=== PATIENT | male | born 1975 | race African-American/Black ===

== ENCOUNTER → 2022-11-11 10:23 | Outpatient (BNVA) | payer OTHER, SELFPAY | PROVIDERS: PCP Student in an Organized Health Care Education/Training Program; Visit Provider Internal Medicine | DX: S29.012A Strain of muscle and tendon of back wall of thorax, initial encounter (principal); S46.819A Strain of other muscles, fascia and tendons at shoulder and upper arm level, unspecified arm, initial encounter; X50.0XXA Overexertion from strenuous movement or load, initial encounter | CPT/HCPCS: 99202 ==

== ENCOUNTER 2024-11-27 11:20 | Emergency (ER) | payer MEDICAID, SELFPAY ==
--- NOTE | 2024-11-27 11:43 | ED_ITS ---
HPI - Dental/Oral General Chief complaint: Dental/Oral Stated complaint: dental pain, tooth infection Time Seen by Provider: 11/27/24 11:47 Source: patient, RN notes reviewed and old records reviewed History of Present Illness ED Provider: Helen Isidro PA-C HPI Narrative: 49 year old male with no sig PMHx presenting to the ED c/o R upper dental infection with pain radiating down to neck x 1 week. Reports subjective fever x1 and admits to similar sx in the past. Denies drainage, recent dental procedure/trauma, hearing loss, chills, sore throat. denies having Dentist Related Data Previous Rx's ?Medication ?Instructions ?Recorded amoxicillin 875 mg-potassium 1 tab PO BID 7 days #14 tabs 11/27/24 clavulanate 125 mg tablet Allergies Allergy/AdvReac Type Severity Reaction Status Date / Time No Known Allergies Allergy Verified 11/27/24 11:46 Review of Systems Review of Systems: Yes all other systems are reviewed and are negative Constitutional: Constitutional: Reports as per HPI [facility] Past Medical History Attestation statement: The following information was validated with the patient. Source: old records reviewed Social History Social History Advance Directives: No Advance Directives Information Provided: Yes Do you have a plan to hurt others: No Plan Physical Exam Vital Signs: Vital Signs: Last Vital Signs Temp 98.0 F 11/27/24 11:44 Pulse 70 11/27/24 11:44 Resp 18 11/27/24 11:44 BP 146/93 H 11/27/24 11:44 Pulse Ox 98 11/27/24 11:44 O2 Del Method Room Air 11/27/24 11:44 BMI result Body Mass Index 34.6 Const: General: cooperative, healthy appearing and no acute distress Orientation/consciousness: patient oriented x3 Limitations: no limitations HEENT: Other: +poor dentition with multiple caries. ri ght upper posterior molar with gingival swelling and erythema. No focal fluctuance or induration. Tender to palpation. No drainage. Head: Yes normal to inspection and Yes atraumatic Ears: hearing grossly normal bilaterally, external ears normal, TM's normal bilaterally and mastoids normal General nose exam: Normal external nose present Face and sinus: Yes normal facial exam Mouth: no drooling and no muffled voice Throat: Yes tonsils normal, Yes uvula midline, No peritonsillar mass, No uvula laterally displaced and No uvular edema Eyes: General: appearance normal, both eyes and all related structures EOM: EOMs intact bilaterally Neck: Neck: Yes normal visual inspection and Yes no meningeal signs Resp: Effort & Inspection: normal respiratory effort, no respiratory distress and no stridor Cardio: Rate: regular rate Skin: Rashes: no rashes Wounds: no wounds Neuro: General: patient oriented x3, tone normal and no meningeal signs Cranial nerves: Yes CN's II-XII intact bilaterally Gait exam (Neuro): Normal gait present Extrem: General: Yes normal to inspection Medical Decision Making Medical Decision Making MDM Narrative: 49 year old male with no sig PMHx presenting to the ED c/o R upper dental infection with pain radiating down to neck x 1 week. On exam vital signs stable, NAD, nontoxic appearing, physical exam as noted above consistent with dental infection. No appreciable abscess at this time or drainable collection. No evidence of ENROLLMENT CONSULTANT / retropharyngeal abscess. TMs WNL Plan: P.o. antibiotics, dentistry follow-up Please refer to course for remaining clinical decision making, interpretation of labs/imaging results, and discussions with consultants and/or family members. Results discussed with patient including worrisome signs and symptoms and strict return precautions, and when to return to the emergency department. They verbalized understanding and feel safe for discharge at this time. Differential Diagnosis Differential Diagnoses: The differential diagnosis associated with the presentation includes As above External Record Review External record reviewed: Inpatient record, Office record, Outpatient record, Prior outpatient labs, Prior outpatient radiology, Primary care record and Outside ED record Tests considered The following testing was considered but not selected: As above Prescription Management I considered prescription management with: Pain Medication and Antibiotic Chronic Conditions Patient?s care impacted by: Other Social Determinants Patient?s care significantly limited by Social Determinants of Health including: Other Social Determinant of Health Discharge Plan Discharge Clinical Impression: Dental infection Patient Disposition: Home, Self-Care Instructions: Dental Abscess (ED) Additional Instructions: Augmentin as an antibiotic please take as prescribed Take Tylenol and ibuprofen for pain Please call/ follow up with a dentist This listed dental office below is new in accepting new patients.: [facility] [address] [facility] [phone] Prescriptions: New amoxicillin-pot clavulanate 875-125 mg tablet 1 tab PO BID 7 Days Qty: 14 0RF Referrals: [facility] [Outside] Print Language: Palestinian
[2024-11-27 11:44] VITALS: BP 146/93; PULSE 70; RESP 18; TEMP 36.7; O2SAT 98; BMI 34.6
--- OUTSIDE RECORDS SUMMARY | 2024-11-27 11:54 | XMS_ITS | Clinical Summary ---
Author Organization [facility] Address [address] [place] [address] Care Team Providers Care Truck Driver Helper Name Role Phone Guzman Navarro MD Primary Care Provider [phone] Allergies No known active allergies Medications omeprazole OTC (PriLOSEC OTC) 20 mg EC tablet Take 1 tablet (20 mg total) by mouth 1 (one) time each day. Active Active Problems Problem Noted Date Diagnosed Date Varicose veins of lower extremity 08/11/2024 Chronic venous insufficiency 08/11/2024 GERD (gastroesophageal reflux disease) Surgical History Surgery Date Site/Laterality Comments OTHER SURGICAL HISTORY PROCEDURE: DENIES PREVIOUS SURGERY Medical History Medical History Date Comments Varicose veins of lower extremity 11/16/2020 DX:Varicose veins of lower extremity GERD (gastroesophageal reflux disease) 01/03/2009 DX:GERD (gastroesophageal reflux disease) Chronic venous insufficiency 11/16/2020 DX: Chronic venous insufficiency Family History Medical History Relation Name Comments Other: hiv Father Other: colonic polyps Maternal Grandmother Relation Name Status Comments Father Maternal Grandmother Mother Alive Sister Alive Social History Tobacco Use Types Packs/Day Years Used Date Smoking Tobacco: Former Alcohol Use Standard Drinks/Week Comments Yes 2.5 (1 standard drink = 0.6 oz p ure alcohol) Sex and Gender Information Value Date Recorded Sex Assigned at Not on file Legal Sex Male 1:06 PM EST Gender Identity Not on file Sexual Orientation Not on file Obstetrics History Plan of Treatment Health Maintenance Due Date Last Done Comments DTaP,Tdap,and Td Vaccines (1 - Tdap) 1993 Hepatitis B Vaccines (1 of 3 - 19+ 3-dose series) 1993 Cholesterol Screening (Lipid Panel) 07/23/2022 Colorectal Cancer Screening: Colonoscopy 07/23/2022 Depression Screening 07/23/2022 HIV Screening 07/23/2022 Hepatitis C Screening 07/23/2022 Social Influencers of Health Screening 07/23/2022 COVID-19 Vaccine (1 - 2023-2 5 season) 2024 Influenza Vaccine (#1) 2024 Pneumococcal Vaccine: 50+ Ye ars (1 of 1 - PCV) 2024 Zoster Vaccines (1 of 2) 2024 HIB Vaccines Aged Out No longer eligi ble based on patient's age to complete this topic HPV Vaccines Aged Out No longer eligi ble based on patient's age to complete this topic Hepatitis A Vaccines Aged Out No long er eligible based on patient's age to complete this topic IPV Vaccines Aged Out No longer eligi ble based on patient's age to complete this topic MMR Vaccines Aged Out No longer eligi ble based on patient's age to complete this topic Meningococcal ACWY Vaccine Aged Out N o longer eligible based on patient's age to complete this topic Meningococcal B Vacine Aged Out No lo nger eligible based on patient's age to complete this topic Pneumococcal Vaccine: Pediat rics (0 to 5 Years) and At-Risk Patients (6 to 64 Years) Aged Out No longer eligible b ased on patient's age to complete this topic RSV Immunization Patients Un ashvin 20 months Aged Out No longer eligible b ased on patient's age to complete this topic Varicella Vaccines Aged Out No longer eligible based on patient's age to complete this topic Care Teams Truck Driver Helper Relationship Specialty Start Date End Date Guzman Navarro MD [address] [place] [id number] PCP - General 01/02/09
--- OUTSIDE RECORDS SUMMARY | 2024-11-27 11:54 | XMS_ITS | Encounter Summary ---
Author Organization [employer] Address [address] [facility] [address] [place] [address] Care Team Providers Care Green Chainer Name Role Phone Melissa Mera MD Primary Care Provider [phone] Reason for Visit * Reason Onset Date Comments New patient appt 01/08/2023 Encounter Details Date Type Department Care Team ([facility] st Contact Info) Description 01/08/2023 Telephone [facility] [address] [place] [address] Melissa Mera MD [address] [place] [address] New patient appt Social History Tobacco Use Types Packs/Day Years Used Date Smoking Tobacco: Never Assessed Sex and Gender Information Value Date Recorded Sex Assigned at Male 06/24/2022 10:20 AM EDT Legal Sex Male 10:20 AM EDT Gender Identity Not on file Sexual Orientation Not on file documented as of this encounter Miscellaneous Notes * Telephone Encounter - Coral Dunn - 01/08/2023 4:17 PM EDT PAR Coral Wilson called pt to offer SENIOR BOOKKEEPER appt. Pt demographics and insurance information were verified. Pt reports previous care at [facility] with PCP Dr. Hernandez. Pt reports no medical conditions. Pt does not take any medication at this moment. Pt given SENIOR BOOKKEEPER appt with on 02/20/2023 at 10:45 am. Pt will be sent appt reminder card and medical release form and agrees to complete and to return to medical records prior to SENIOR BOOKKEEPER appt. documented in this encounter Plan of Treatment Not on file documented as of this encounter Visit Diagnoses Not on filedocumented in this encounter Care Teams Green Chainer Relationship Specialty Start Date End Date Melissa Mera MD [address] [place] [address] PCP - General Family Medicine 01/08/23 01/22/23 documented as of this encounter
--- OUTSIDE RECORDS SUMMARY | 2024-11-27 11:54 | XMS_ITS | Clinical Summary ---
Author Organization [employer] Address [address] [facility] [address] [place] [address] Care Team Providers Care Health And Safety Representative Name Role Phone Unavailable Primary Care Provider Unavailabl e Medications penicillin v potassium (Veetid) 500 MG tablet Take 500 mg by mouth 2 times daily. 01/02/2023 Active Encounters Date Type Department Care Team Description 11/05/2024 Population Health Risk Score [facility] ([facility]) Department [address] [address] Provider, Population Health Generic from Last 3 Months Immunizations Name Administration Dates Next Due Hep B, adult 06/13/2016, 2,05/07/2012,2011 TD (adult), 2 Lf tetanus tox oid, preservative free, adsorbed 09/14/2018 Tdap 04/06/2012 Social History Tobacco Use Types Packs/Day Years Used Date Smoking Tobacco: Never Assessed Housing Stability Answer Date Recorded What is your housing situation today? I have harvey castaneda 06/30/[address] you li ve. Do you have problems with any of the following? None of the above 06/30/2023 Food Insecurity Answer Date Recorded Within the past 12 months, y ou worried that your food would run out before you got money to buy more: Often true 06/30/2023 Within the past 12 months,th e food you bought just didn't last and you didn't have enough money to get more: Often true 01/2023 Transportation Answer Date Recorded In the past 12 months, has l ack of transportation kept you from medical appts, meetings, work or from getting things needed for daily living? No 06/30/2023 Utilities Answer Date Recorded In the past 12 months, has t he electric, gas, oil or water company threatened to shut off services in your home? Yes 06/01/2023 Sex and Gender Information Value Date Recorded Sex Assigned at Male 06/24/2022 10:20 AM EDT Legal Sex Male 10:20 AM EDT Gender Identity Not on file Sexual Orientation Not on file Plan of Treatment Health Maintenance Due Date Last Done Comments CT Colonography 1974 Colonoscopy 1974 Colorectal Cancer Screening 1974 Depression Screening 1974 FIT DNA/Cologuard 1974 FIT 1974 FOBT 1974 HIV Screening 1974 Lipid Panel 1974 Sigmoidoscopy 1974 Alcohol/Substance Use Screening 1986 Tobacco Screening 1986 Family Planning (PISQ) 1989 Hepatitis C Screening 1992 SDOH Screening 02/14/2024 02/13/2023 COVID-19 Vaccine ( - season) 2024 Influenza Vaccine (#1) 2024 Pneumococcal Vaccine: 50+ Years (1 of 1 - PCV) 2024 Zoster Vaccines (1 of 2) 2024 DTaP/Tdap/Td Vaccines (3 - Td or Tdap) 09/14/2028 09/14/2018, 04/06/2012 RSV Patients and Patients Aged 60 years or older (1 - 1-dose 75+ series) 2049 Hepatitis B Vaccines Completed 06/13/2016, 07/14/2012, 05/07/2012, Additional history exists HIB Vaccines Aged Out No longer eligi [...] patient's age to complete this topic Meningococcal Vaccine Aged Out No brian raphael eligible based on patient's age to complete this topic Pneumococcal Vaccine: Pediatrics (0 to 5 Years) and At-Risk Patients (6 to 49) Years) Aged Out No longer eligible based on patient's age to complete this topic RSV under 20 months Aged Out No longe r eligible based on patient's age to complete this topic Rotavirus Vaccines Aged Out No longer eligible based on patient's age to complete this topic Insurance [facility] C3
[2024-11-27 12:02] VITALS: BP 146/93; PULSE 70; RESP 18; TEMP 36.7; O2SAT 98
== END 2024-11-27 12:02 | disposition home or self-care (01) ==
PROVIDERS: Emergency Provider Emergency Medicine Emergency Medical Services
DX: K04.7 Periapical abscess without sinus (principal); K08.89 Other specified disorders of teeth and supporting structures; K02.9 Dental caries, unspecified
CPT/HCPCS: 99282; 99283